=== PATIENT | male | born 1960 | race Two or more races ===

== ENCOUNTER 2023-11-18 17:11 | Inpatient (IN) | payer OTHER ==
[~2023-11-18] VITALS: Ht 175.3 cm; Wt 99.9 kg
[2023-11-18 18:21] LABS: BASO # 0.1 10^3/uL (0.0-0.2); BASO % 0.5 % (0.0-1.0); EOS # 0.2 10^3/uL (0.0-0.5); EOS % 1.2 % (0.0-3.0); HEMATOCRIT 46.9 % (42.0-52.0); HEMOGLOBIN 16.4 g/dl (13.5-17.5); LYMPH # 2.1 10^3/uL (1.5-5.0); LYMPH % 16.3 % (24.0-44.0); MEAN CORPUSCULAR HEMOGLOBIN 31.5 pg (27.0-33.0); MEAN CORPUSCULAR VOLUME 90.2 fl (80.0-96.0); MONO # 0.9 10^3/uL (0.0-0.8); MONO % 7.1 % (2.0-8.0); NEUTROPHILS # 9.6 10^3/uL (1.5-8.5); NEUTROPHILS % 74.5 % (36.0-66.0); PLATELET COUNT, AUTOMATED 266 10^3/uL (150-450); WHITE BLOOD COUNT 12.9 10^3/uL (4.0-10.0)
[2023-11-18 18:32] LABS: INR 1.07; PROTHROMBIN TIME 13.6 SECONDS (12.5-14.5)
[2023-11-18 18:51] LABS: LIPASE 34 U/L (12-53)
[2023-11-18 18:53] LABS: ALBUMIN 4.1 G/DL (3.2-5.2); ALKALINE PHOSPHATASE 92 U/L (46-116); ALT/SGPT 11 U/L (7.0-40); AST/SGOT 14 U/L (<34); BILIRUBIN,DIRECT < 0.1 MG/DL (<0.4); BILIRUBIN,TOTAL 0.4 MG/DL (0.3-1.2); CK-MB VALUE MASS < 1.0 NG/ML (<3.6); TOTAL PROTEIN 7.6 G/DL (5.7-8.2)
[2023-11-18 19:08] LABS: CPK CREATINE PHOSPHOKINASE 49 U/L (46-171); MB/CK RELATIVE INDEX 2.04 (< OR =4)
[2023-11-18] MEDS ORDERED: ISOVUE-370 76% 100ML VIAL As Ordered ONE (19:33)
[2023-11-18] MEDS: ASPIRIN 81MG CHEW TABLET PO ONE (20:01)
[2023-11-18] MEDS: hydrALAZINE 20MG/ML 1ML VIAL IV STA (20:05)
[2023-11-18] MEDS: NITROGLYCERIN 0.4MG SUBL TABLET SL PRN (20:20)
[2023-11-18 20:50] LABS: CK-MB VALUE MASS < 1.0 NG/ML (<3.6)
[2023-11-18 20:52] LABS: CPK CREATINE PHOSPHOKINASE 46 U/L (46-171); MB/CK RELATIVE INDEX 2.17 (< OR =4)
[2023-11-18] MEDS ORDERED: PROBCAP14 PO (21:30)
[2023-11-18] MEDS ORDERED: IBUP200T46 PO (21:30)
[2023-11-18] MEDS ORDERED: HOME MED LIST COMPLETE! XX SCH (21:35)
[2023-11-18 21:53] LABS: AMPHETAMINES LEVEL URINE NEGATIVE (NEGATIVE); BARBITURATES URINE NEGATIVE (NEGATIVE); BENZODIAZEPINES URINE NEGATIVE (NEGATIVE); COCAINE METABOLITE URINE NEGATIVE (NEGATIVE); METHADONE URINE NEGATIVE (NEGATIVE); OPIATES URINE NEGATIVE (NEGATIVE); PHENCYCLIDINE URINE NEGATIVE (NEGATIVE)
[2023-11-18 21:58] LABS: CANNABINOIDS URINE POSITIVE (NEGATIVE)
[2023-11-18] MEDS ORDERED: niCARdipine IV 40 MG in IV 1 EA IV SCH (23:05)
[2023-11-18] MEDS: amLODIPine 5 MG TAB PO SCH (23:39)
[2023-11-19] VITALS (12 sets, daily range): BP systolic 126–210; BP diastolic 64–100; TEMP 97.1–98; O2SAT 98–99
[2023-11-19 00:06] LABS: BLOOD UREA NITROGEN 13 MG/DL (9-23); CALCIUM LEVEL 8.8 MG/DL (8.3-10.6); CARBON DIOXIDE LEVEL 23 MMOL/L (20-31); CHLORIDE LEVEL 106 MMOL/L (98-107); GLOMERULAR FILTRATION RATE > 60.0 (>49); GLUCOSE, FASTING 96 MG/DL (74-106); POTASSIUM SERUM 3.6 MMOL/L (3.5-5.1); SODIUM LEVEL 137 MMOL/L (136-145)
[2023-11-19 01:51] LABS: APPEARANCE, URINE CLEAR (CLEAR); BACTERIA, URINE AUTO NEGATIVE (NEGATIVE); BILIRUBIN, URINE AUTO NEGATIVE (NEGATIVE); BLOOD, URINE BLOOD 1+ (NEGATIVE); COLOR, URINE YELLOW (YELLOW); GLUCOSE, URINE (UA) AUTO NEGATIVE (NEGATIVE); KETONE, URINE AUTO TRACE mg/dL (NEGATIVE); LEUKOCYTE ESTERASE, URINE AUTO NEGATIVE (NEGATIVE); NITRITE, URINE AUTO NEGATIVE (NEGATIVE); PROTEIN, URINE AUTO NEGATIVE (NEGATIVE); RBC, URINE AUTO 17 /HPF (0-3); SPECIFIC GRAVITY URINE AUTO 1.044 (1.002-1.035); SQUAMOUS EPITHELIAL CELL UR AU 4 /HPF (0-6); WBC, URINE AUTO 1 /HPF (0-3)
[2023-11-19 06:56] LABS: BASO # 0.1 10^3/uL (0.0-0.2); BASO % 0.7 % (0.0-1.0); EOS # 0.3 10^3/uL (0.0-0.5); EOS % 3.2 % (0.0-3.0); HEMATOCRIT 43.7 % (42.0-52.0); HEMOGLOBIN 14.8 g/dl (13.5-17.5); LYMPH % 24.1 % (24.0-44.0); MEAN CORPUSCULAR HEMOGLOBIN 30.9 pg (27.0-33.0); MEAN CORPUSCULAR HGB CONC 33.9 g/dl (32.0-36.5); MEAN CORPUSCULAR VOLUME 91.2 fl (80.0-96.0); MONO % 12.3 % (2.0-8.0); NEUTROPHILS # 4.9 10^3/uL (1.5-8.5); NEUTROPHILS % 59.5 % (36.0-66.0); PLATELET COUNT, AUTOMATED 229 10^3/uL (150-450); RED BLOOD COUNT 4.79 10^6/uL (4.30-6.10); WHITE BLOOD COUNT 8.2 10^3/uL (4.0-10.0)
[2023-11-19 07:20] LABS: BLOOD UREA NITROGEN 14 MG/DL (9-23); CALCIUM LEVEL 9.2 MG/DL (8.3-10.6); CARBON DIOXIDE LEVEL 27 MMOL/L (20-31); CHLORIDE LEVEL 106 MMOL/L (98-107); CHOLESTEROL LEVEL 274 MG/DL (<200); CHOLESTEROL RISK RATIO 7.65 (<5); CREATININE FOR GFR 0.83 MG/DL (0.70-1.30); GLOMERULAR FILTRATION RATE > 60.0 (>49); GLUCOSE, FASTING 130 MG/DL (74-106); HDL CHOLESTEROL 35.8 MG/DL (>40); LDL CHOLESTEROL 217.4 MG/DL (<100); NON-HDL-C 238.2 MG/DL; POTASSIUM SERUM 3.9 MMOL/L (3.5-5.1); SODIUM LEVEL 138 MMOL/L (136-145); TRIGLYCERIDES LEVEL 104 MG/DL (<150)
[2023-11-19 07:23] LABS: HEMOGLOBIN A1c 5.4 % (4.0-6.0); THYROID STIMULATING HORMONE 4.045 uIU/ML (0.55-4.78)
[2023-11-19 08:03] LABS: VITAMIN B12 LEVEL 421 PG/ML (211-911)
[2023-11-19 08:10] LABS: FOLATE > 24.00 NG/ML (>5.4)
[2023-11-19] MEDS: DOCUSATE SODIUM 100MG CAPSULE PO SCH (08:23)
[2023-11-19] MEDS: ENOXAPARIN 40MG/0.4ML SYRINGE (J1650 PER 10MG) SC SCH (08:24)
[2023-11-19] MEDS ORDERED: NITROGLYCERIN 0.3MG SUBL TAB SL PRN (13:30)
[2023-11-19] MEDS ORDERED: LORazepam 2 MG TAB PO PRN (13:40)
[2023-11-19] MEDS: MIRALAX *UNIT DOSE* 17GM PACKET PO SCH (13:45)
[2023-11-19] MEDS: KETOROLAC 30 MG/ML 1ML VIAL IV PRN (13:54)
[2023-11-19] MEDS: ASPIRIN 81MG ENTERIC TABLET PO SCH (15:09)
[2023-11-19] MEDS: FOLIC ACID 1MG TAB PO SCH (15:09)
[2023-11-19] MEDS: MULTIVITAMINS/MINERALS THERAP 1 TAB PO SCH (15:09)
[2023-11-19] MEDS: ATORVASTATIN 20 MG TAB PO SCH (15:09)
[2023-11-19] MEDS: THIAMINE INJection 500 MG in NS 100 ML IV SCH (15:10)
[2023-11-19] MEDS: CAPTOpril 6.25 MG PER 1/2 TABLET PO SCH (20:16)
[2023-11-19] MEDS ORDERED: METOPROLOL TART 25 MG TABLET PO SCH (21:00)
[2023-11-20 04:00] VITALS: BP 172/70
[2023-11-20 04:32] VITALS: BP 172/70; TEMP 97.5; O2SAT 99
[2023-11-20] MEDS: amLODIPine 5 MG TAB PO SCH (08:29)
[2023-11-20] MEDS: KETOROLAC 30 MG/ML 1ML VIAL IV PRN (08:43)
[2023-11-20] MEDS: MORPHINE 4 MG/ML 1ML VIAL IV ONE (10:44)
[2023-11-20 12:00] VITALS: BP 188/83; TEMP 97.6; O2SAT 96
[2023-11-20 13:00] VITALS: BP 183/81
[2023-11-20] MEDS: CAPTOpril 12.5 MG TAB PO SCH (15:38)
[2023-11-20] MEDS: CHLORTHALIDONE 25 MG TAB PO SCH (15:38)
[2023-11-20] MEDS ORDERED: CAPTOpril 12.5 MG TAB PO SCH (16:00)
[2023-11-20 20:00] VITALS: BP 160/84; TEMP 97; O2SAT 98
[2023-11-20 20:20] VITALS: BP 160/84
[2023-11-21] VITALS (9 sets, daily range): BP systolic 158–187; BP diastolic 70–81; TEMP 97.5; O2SAT 96–98
[2023-11-21] MEDS ORDERED: CHLO25TA PO (11:28)
[2023-11-21] MEDS ORDERED: ATOR40TA75 PO (11:28)
[2023-11-21] MEDS ORDERED: NITR0.4S14 SL (11:28)
[2023-11-21] MEDS ORDERED: ASPI81TAEC PO (11:28)
[2023-11-21] MEDS ORDERED: AMLO1TAB24 PO (11:28)
[2023-11-21] MEDS ORDERED: OXYC-517 PO (11:31)
[2023-11-21] MEDS ORDERED: MIRA3350 PO (11:32)
[2023-11-21] MEDS ORDERED: GABA-1171 PO (11:39)
== END 2023-11-21 16:31 | disposition home or self-care (01) | DRG 199 ==
LOC: M ED 17:11 → M ED INP 23:05 → M PCU 11-19 00:50 → M MSPAV 11-19 21:45
PROVIDERS: ADMIT Internal Medicine; ATTEND Student in an Organized Health Care Education/Training Program
PROC: B246ZZZ Ultrasonography of Right and Left Heart (ICD-10-PCS; principal; 2023-11-19)
DX: I16.0 Hypertensive urgency (principal); G93.40 Encephalopathy, unspecified; I50.32 Chronic diastolic (congestive) heart failure; G62.9 Polyneuropathy, unspecified; N20.0 Calculus of kidney; F17.290 Nicotine dependence, other tobacco product, uncomplicated; F10.90 Alcohol use, unspecified, uncomplicated; Z66 Do not resuscitate; I25.119 Atherosclerotic heart disease of native coronary artery with unspecified angina pectoris; R26.89 Other abnormalities of gait and mobility; R55 Syncope and collapse; R41.2 Retrograde amnesia; Z88.8 Allergy status to other drugs, medicaments and biological substances; I11.0 Hypertensive heart disease with heart failure

== ENCOUNTER → 2023-12-17 | Outpatient (CLI) | payer OTHER ==
[~2023-12-17] MED LIST: AMLO1TAB24 PO; ASPI81TAEC PO; ATOR40TA75 PO; CHLO25TA PO; GABA-1171 PO; IBUP200T46 PO; MIRA3350 PO; NITR0.4S14 SL; OXYC-517 PO; PROBCAP14 PO
[2023-12-17 15:47] LABS: CORTISOL PM 6.1 UG/DL (3.1-16.7)
[2023-12-17 15:50] LABS: FOLATE 20.7 NG/ML (>5.4)
[2023-12-17 15:51] LABS: THYROID STIMULATING HORMONE 1.201 uIU/ML (0.55-4.78)
[2023-12-17 15:52] LABS: FREE T4 1.22 NG/DL (0.89-1.76)
== END ==
LOC: M PLALAB 14:07
PROVIDERS: ATTEND Student in an Organized Health Care Education/Training Program
DX: I10 Essential (primary) hypertension (principal); R42 Dizziness and giddiness

== ENCOUNTER → 2024-01-22 | Outpatient (CLI) | payer OTHER ==
[2024-01-22 18:34] LABS: BLOOD UREA NITROGEN 17 MG/DL (9-23); CALCIUM LEVEL 9.9 MG/DL (8.3-10.6); CARBON DIOXIDE LEVEL 28 MMOL/L (20-31); CHLORIDE LEVEL 104 MMOL/L (98-107); CREATININE FOR GFR 0.86 MG/DL (0.70-1.30); GLOMERULAR FILTRATION RATE > 60.0 (>49); GLUCOSE, FASTING 93 MG/DL (74-106); POTASSIUM SERUM 4.4 MMOL/L (3.5-5.1); SODIUM LEVEL 139 MMOL/L (136-145)
== END ==
LOC: M PLALAB 15:15
PROVIDERS: ATTEND Student in an Organized Health Care Education/Training Program
DX: I10 Essential (primary) hypertension (principal)

== ENCOUNTER 2024-03-03 16:18 | Emergency (ER) | payer MEDICAID, OTHER ==
[~2024-03-03] VITALS: Ht 175.3 cm; Wt 111.8 kg
[2024-03-03 16:40] LABS: BASO # 0.1 10^3/uL (0.0-0.2); BASO % 0.7 % (0.0-1.0); EOS # 0.2 10^3/uL (0.0-0.5); EOS % 1.7 % (0.0-3.0); HEMATOCRIT 44.3 % (42.0-52.0); HEMOGLOBIN 14.8 g/dl (13.5-17.5); LYMPH % 22.2 % (24.0-44.0); MEAN CORPUSCULAR HEMOGLOBIN 31.1 pg (27.0-33.0); MEAN CORPUSCULAR HGB CONC 33.4 g/dl (32.0-36.5); MEAN CORPUSCULAR VOLUME 93.1 fl (80.0-96.0); MONO % 10.8 % (2.0-8.0); NEUTROPHILS # 5.7 10^3/uL (1.5-8.5); NEUTROPHILS % 64.3 % (36.0-66.0); PLATELET COUNT, AUTOMATED 259 10^3/uL (150-450); RED BLOOD COUNT 4.76 10^6/uL (4.30-6.10); WHITE BLOOD COUNT 8.8 10^3/uL (4.0-10.0)
[2024-03-03 17:05] LABS: BLOOD UREA NITROGEN 15 MG/DL (9-23); CALCIUM LEVEL 9.5 MG/DL (8.3-10.6); CARBON DIOXIDE LEVEL 26 MMOL/L (20-31); CHLORIDE LEVEL 102 MMOL/L (98-107); CK-MB VALUE MASS < 1.0 NG/ML (<3.6); CPK CREATINE PHOSPHOKINASE 97 U/L (46-171); CREATININE FOR GFR 0.98 MG/DL (0.70-1.30); GLOMERULAR FILTRATION RATE > 60.0 (>49); GLUCOSE, FASTING 164 MG/DL (74-106); MB/CK RELATIVE INDEX 1.03 (< OR =4); POTASSIUM SERUM 4.4 MMOL/L (3.5-5.1); SODIUM LEVEL 135 MMOL/L (136-145)
[2024-03-03] MEDS ORDERED: [UNRECOGNIZED DRUG - OTHER] (17:45)
[2024-03-03] MEDS ORDERED: VALE500C2 PO (17:47)
[2024-03-03 17:49] LABS: INR 0.99; PARTIAL THROMBOPLASTIN TIME 24.6 SECONDS (24.8-34.2); PROTHROMBIN TIME 13.4 SECONDS (12.5-14.5)
[2024-03-03 18:15] VITALS: BP 162/86
[2024-03-03] MEDS: METOPROLOL TART 50 MG TAB PO ONE (18:15)
[2024-03-03 18:16] LABS: CK-MB VALUE MASS < 1.0 NG/ML (<3.6)
[2024-03-03 18:17] LABS: CPK CREATINE PHOSPHOKINASE 90 U/L (46-171); MB/CK RELATIVE INDEX 1.11 (< OR =4)
[2024-03-03] MEDS ORDERED: HEPARIN SOD (PORCINE) 5000UNITS/ML 1ML VIAL/SYRINGE IV PRN (18:30)
[2024-03-03] MEDS: HEPARIN DRIP 25,000 UNITS in IV 1 EA IV SCH (18:50)
[2024-03-03] MEDS: HEPARIN SOD (PORCINE) 5000UNITS/ML 1ML VIAL/SYRINGE IV ONE (18:51)
[2024-03-03 20:26] VITALS: BP 162/80; TEMP 97.2; O2SAT 98
== END 2024-03-03 20:57 | disposition short-term general hospital (02) ==
LOC: M ED 16:18 → EDBD 16:18 → M ED 20:57
DX: I20.0 Unstable angina (principal); I11.0 Hypertensive heart disease with heart failure; E78.5 Hyperlipidemia, unspecified; Z87.442 Personal history of urinary calculi; F17.200 Nicotine dependence, unspecified, uncomplicated; Z79.899 Other long term (current) drug therapy; Z88.6 Allergy status to analgesic agent

== ENCOUNTER → 2024-05-25 | Outpatient (CLI) | payer MEDICARE, OTHER ==
[~2024-05-25] MED LIST changes: +VALE500C2 PO; +[UNRECOGNIZED DRUG - OTHER]
[2024-05-25 17:50] LABS: HEMATOCRIT 46.1 % (42.0-52.0); HEMOGLOBIN 15.1 g/dl (13.5-17.5); MEAN CORPUSCULAR HEMOGLOBIN 28.5 pg (27.0-33.0); MEAN CORPUSCULAR HGB CONC 32.8 g/dl (32.0-36.5); MEAN CORPUSCULAR VOLUME 87.1 fl (80.0-96.0); PLATELET COUNT, AUTOMATED 360 10^3/uL (150-450); RED BLOOD COUNT 5.29 10^6/uL (4.30-6.10)
[2024-05-25 18:29] LABS: ALBUMIN 3.6 G/DL (3.2-5.2); ALKALINE PHOSPHATASE 99 U/L (40-129); ALT/SGPT < 9 U/L (7.0-40); AST/SGOT 10 U/L (<34); BILIRUBIN,TOTAL 0.3 MG/DL (0.3-1.2); BLOOD UREA NITROGEN 12 MG/DL (9-23); CALCIUM LEVEL 9.6 MG/DL (8.3-10.6); CARBON DIOXIDE LEVEL 26 MMOL/L (20-31); CHLORIDE LEVEL 101 MMOL/L (98-107); CHOLESTEROL LEVEL 296 MG/DL (<200); CHOLESTEROL RISK RATIO 7.16 (<5); CREATININE FOR GFR 0.88 MG/DL (0.70-1.30); GLOMERULAR FILTRATION RATE > 60.0 (>49); GLUCOSE, FASTING 113 MG/DL (74-106); HDL CHOLESTEROL 41.3 MG/DL (>40); LDL CHOLESTEROL 224.3 MG/DL (<100); NON-HDL-C 254.7 MG/DL; POTASSIUM SERUM 4.6 MMOL/L (3.5-5.1); SODIUM LEVEL 139 MMOL/L (136-145); TOTAL PROTEIN 7.4 G/DL (5.7-8.2); TRIGLYCERIDES LEVEL 152 MG/DL (<150)
== END ==
LOC: M PLALAB 14:09
PROVIDERS: ATTEND Internal Medicine Cardiovascular Disease
DX: I25.10 Atherosclerotic heart disease of native coronary artery without angina pectoris (principal)

== ENCOUNTER → 2024-12-27 | Outpatient (CLI) | payer MEDICARE, MEDICAID ==
[2024-12-27 15:47] LABS: PLATELET COUNT, AUTOMATED 342 10^3/uL (150-450)
[2024-12-27 15:56] LABS: APPEARANCE, URINE HAZY (CLEAR); BACTERIA, URINE AUTO NEGATIVE (NEGATIVE); BILIRUBIN, URINE AUTO NEGATIVE (NEGATIVE); BLOOD, URINE BLOOD 1+ (NEGATIVE); GLUCOSE, URINE (UA) AUTO 1+ mg/dL (NEGATIVE); KETONE, URINE AUTO TRACE mg/dL (NEGATIVE); LEUKOCYTE ESTERASE, URINE AUTO 1+ (NEGATIVE); MUCUS, URINE SMALL (NEGATIVE); NITRITE, URINE AUTO NEGATIVE (NEGATIVE); PROTEIN, URINE AUTO 1+ mg/dL (NEGATIVE); RBC, URINE AUTO 21 /HPF (0-3); SPECIFIC GRAVITY URINE AUTO 1.025 (1.002-1.035); SQUAMOUS EPITHELIAL CELL UR AU 9 /HPF (0-6); UROBILINOGEN, URINE AUTO 2.0 mg/dL (0.0-2.0); WBC, URINE AUTO 16 /HPF (0-3)
[2024-12-27 16:04] LABS: INR 0.94
[2024-12-27 16:18] LABS: CALCIUM LEVEL 9.0 MG/DL (8.3-10.6); CARBON DIOXIDE LEVEL 26 MMOL/L (20-31); CHLORIDE LEVEL 102 MMOL/L (98-107); CREATININE FOR GFR 0.93 MG/DL (0.70-1.30); GLOMERULAR FILTRATION RATE > 90.0 (>49); PHOSPHORUS LEVEL 2.9 MG/DL (2.4-5.1); POTASSIUM SERUM 4.5 MMOL/L (3.5-5.1); SODIUM LEVEL 135 MMOL/L (136-145)
[2024-12-27 16:22] LABS: PTH INTACT 67.0 PG/ML (18.5-88.0)
[2024-12-27 16:24] LABS: TOTAL 25(OH) VITAMIN D 16.8 NG/ML (20.0-100.0)
== END ==
LOC: M LAB 14:21
PROVIDERS: ATTEND Urology
DX: E83.52 Hypercalcemia (principal); Z87.442 Personal history of urinary calculi

== ENCOUNTER → 2025-02-03 | Outpatient (CLI) | payer MEDICARE, MEDICAID ==
[~2025-02-03] MED LIST changes: +FUROSEMIDE 20 MG/2 ML VIAL IV ONE
== END ==
LOC: M RAD 12:20
PROVIDERS: ATTEND Urology
DX: N20.0 Calculus of kidney (principal)
CPT/HCPCS: 78708; A9562